=== PATIENT | female | born 1965 | race Caucasian/White ===

== ENCOUNTER 2017-10-18 18:20 | Emergency (ER) | payer MEDICAID ==
[~2017-10-18] VITALS: Ht 162.6 cm; Wt 61.0 kg
[~2017-10-18 18:20] MED LIST: CYCL-1 PO; GABA-532 PO; PRED20TA PO
[2017-10-18 18:25] VITALS: BP 123/76
[2017-10-18] MEDS ORDERED: HYDR-3965 PO (19:03)
[2017-10-18] MEDS ORDERED: morphine 4 MG/ML inj SYRINge IM ONE (19:05)
== END 2017-10-18 19:55 | disposition home or self-care (01) ==
LOC: ER 18:21
DX: G89.29 Other chronic pain (principal); M25.511 Pain in right shoulder; Z98.890 Other specified postprocedural states; Z79.899 Other long term (current) drug therapy
CPT/HCPCS: 96372; 99284; J2270; J7030

== ENCOUNTER 2017-11-09 10:03 | Emergency (ER) | payer MEDICAID ==
[~2017-11-09] VITALS: Ht 162.6 cm; Wt 64.2 kg
[~2017-11-09 10:03] MED LIST changes: +HYDR-3965 PO
[2017-11-09] MEDS ORDERED: dexamethasone 0.5 mg/5ml unit-dose oral solution PO STA (12:11)
[2017-11-09] MEDS ORDERED: ketorolac trometh inj. 60 MG/2 ML VIAL IM ONE (12:15)
[2017-11-09] MEDS ORDERED: dexamethasone sod phosphate 10mg/ml inj PO STA (12:17)
[2017-11-09 12:46] VITALS: BP 120/57
== END 2017-11-09 12:47 | disposition home or self-care (01) ==
LOC: ER 10:04
DX: M25.511 Pain in right shoulder (principal); G89.29 Other chronic pain; Z79.899 Other long term (current) drug therapy
CPT/HCPCS: 96372; 99283; J1100; J1885; J8540

== ENCOUNTER 2019-01-29 23:04 | Emergency (ER) | payer MEDICAID ==
[~2019-01-29] VITALS: Ht 162.6 cm; Wt 72.7 kg
[~2019-01-29 23:04] MED LIST changes: +CEPH500C5 PO; -HYDR-3965 PO
[2019-01-29 23:05] VITALS: BP 125/51
== END 2019-01-30 00:48 | disposition home or self-care (01) ==
LOC: ER 23:04
DX: M25.571 Pain in right ankle and joints of right foot (principal); G89.29 Other chronic pain; M19.90 Unspecified osteoarthritis, unspecified site; Z98.890 Other specified postprocedural states; Z79.899 Other long term (current) drug therapy
CPT/HCPCS: 36415; 73610; 84550; 99284

== ENCOUNTER 2022-01-25 13:24 | Emergency (ER) | payer BC, MEDICAID ==
[~2022-01-25] VITALS: Ht 162.6 cm; Wt 83.0 kg
[~2022-01-25 13:24] MED LIST changes: -CEPH500C5 PO
[2022-01-25 13:58] VITALS: BP 117/51
[2022-01-25] MEDS ORDERED: LIDO1ADH58 TOP (15:23)
[2022-01-25] MEDS ORDERED: BACL-11 PO (15:24)
== END 2022-01-25 16:20 | disposition home or self-care (01) ==
LOC: ER 13:25
DX: M54.2 Cervicalgia (principal); M25.571 Pain in right ankle and joints of right foot; M25.511 Pain in right shoulder; M54.50 Low back pain, unspecified; G89.29 Other chronic pain; Z72.89 Other problems related to lifestyle; Z98.890 Other specified postprocedural states; Z79.899 Other long term (current) drug therapy
CPT/HCPCS: 71045; 73610; 99284